=== PATIENT | female | born 2000 | race Caucasian/White ===

== ENCOUNTER 2019-06-24 22:49 | Emergency (ER) | payer OTHER ==
[~2019-06-24 22:49] MED LIST: Iopamidol 370 76% 50 ML VIAL FS ONE; Iopamidol-370 76% 500 ML 1 ML ONE
[2019-06-24] MEDS ORDERED: Acetaminophen 500 MG TAB ONE ×2 (23:22)
[2019-06-24 23:24] LABS: #Lymphocytes 0.4 thou/uL (1.20-3.40); #Monocytes 0.5 thou/uL (0.11-0.59); #Neutrophils 3.6 thou/uL (1.40-6.50); %Basophils 0.3 % (0.0-1.0); %Lymphocytes 9.4 % (28.0-48.0); %Monocytes 11.7 % (0.0-4.0); %Neutrophils 77.6 % (31.0-61.0); Hemoglobin 13.3 g/dL (12.0-16.0); Mean Corpuscular HGB CONC 33.7 g/dL (32.0-36.0); Mean Corpuscular Hemoglobin 32.8 pg (25.0-35.0); Mean Corpuscular Volume 97.3 fL (78.0-98.0); Mean Platelet Volume 7.9 fL (7.4-10.4); Platelet Count 306 thou/uL (130-400); RBC Distribution Width 11.8 % (11.5-14.5); Red Blood Cell (RBC) Count 4.05 mill/uL (4.00-5.20); White Blood Cell (WBC) Count 4.7 thou/uL (4.8-10.8)
[2019-06-24] MEDS ORDERED: cefTRIAXone\\ROCEPHIN 2 GM VIAL ONE (23:33)
[2019-06-24] MEDS ORDERED: Sodium Chloride 0.9% 100 ML ONE (23:33)
[2019-06-24 23:38] LABS: Bacteria/HPF None Seen HPF (None Seen); Bilirubin Negative (Negative); Blood, Urine 1+ (Negative); Clarity Clear (Clear); Glucose, Urine (Dipstick) Normal (Negative); Leukocyte Negative Leu/uL (Negative); Nitrite Negative (Negative); Protein, Urine (Dipstick) Negative (Neg-Trace); Squamous Epithelial 0-3 HPF (0-3); Urobilinogen Normal mg/dL (Less than 2); WBC/HPF 0-3 HPF (0-3)
[2019-06-24 23:41] LABS: Pregnancy Test - Urine (BHCG) Negative (Negative); Pregu Control Background? CLEAR/WHITE (CLR/WHITE); Pregu Control Bar Appear? YES (CONTROL BAR); Specific Gravity 1.024 (1.002-1.036)
[2019-06-24 23:46] LABS: ALT (SGPT) 27 U/L (8-55); AST (SGOT) 28 U/L (5-34); Albumin 4.6 g/dL (3.5-5.0); Alkaline Phosphatase 64 U/L (40-100); Anion Gap 13 mmol/L (10-20); BUN (Urea Nitrogen) 13 mg/dL (7.0-18.7); Bilirubin, Total 0.3 mg/dL (0.2-1.2); Calc. Creatinine Clearance 0 mL/min (70-130); Carbon Dioxide 26 mmol/L (22-29); Chloride 101 mmol/L (98-107); Estimated GFR-MDRD Greater than 90; Globulin 3.4 g/dL (2.4-3.5); Glucose 69 mg/dL (70-105); Potassium 3.8 mmol/L (3.5-5.1); Sodium 136 mmol/L (136-145)
[2019-06-25] MEDS ORDERED: Ketorolac Tromethamine 30 MG/ML VIAL ONE (00:11)
--- NOTE | 2019-06-25 06:27 | CT ---
CT ABDOMEN AND PELVIS WITH IV CONTRAST: Date: 06/24/2019 INDICATION: History of bilateral flank pain and urinary frequency with fever and chills. FINDINGS: The lung bases are clear. The liver, spleen, and adrenal glands are normal appearing. There is a tiny, subcentimeter cyst seen within the right mid kidney. No hydronephrosis is evident. No free fluid or enlarged lymph nodes are evident. The small and large bowel appear within normal limits. There is a mild amount of retained stool withi n the colon. There is a normal appendix in the right lower quadrant of the abdomen. The bladder, reproductive structures, rectum, and perirectal soft tissues are unremarkable appearing. No free fluid or enlarged lymph nodes are evident within the pelvis. No acute osseous abnormality is demonstrated. IMPRESSION: 1. Normal appendix. 2. Tiny mid right renal cyst. 3. Mild amount of retained stool within the colon. POS: BH
== END 2019-06-24 23:33 | disposition home or self-care (01) ==
LOC: ERS 22:49
DX: R50.9 Fever, unspecified (principal); M54.9 Dorsalgia, unspecified
CPT/HCPCS: 36415; 74177; 80053; 81003; 81015; 81025; 83605; 85025; 87040; 87086; 96365; 96375; J0696; J1885; J3490; Q9967